=== PATIENT | female | born 1955 | race Caucasian/White ===

== ENCOUNTER 2023-07-26 10:20 | Inpatient (IN) | payer OTHER, SELFPAY ==
[2023-07-20 10:35] VITALS: BMI 32.2
[2023-07-26] VITALS (10 sets, daily range): BP systolic 110–159; BP diastolic 57–98; PULSE 77–104; RESP 9–18; TEMP 36.1–36.6; O2SAT 92–99; BMI 32.2
--- NOTE | 2023-07-26 | DI.RAD.S_ITS ---
PROCEDURE: XR LUMBAR SPINE 2-3V INDICATIONS: L4-5 TLIF TECHNIQUE: 3 views of the lumbar spine were acquired. COMPARISON: None. FINDINGS: Intraoperative L4-5 fixation with intervertebral spacer/prosthetic disc is present. There is good anatomic alignment hardware is intact. IMPRESSION: Intraoperative L4-5 fixation. Dictated by: Gretchen Zarate M.D. on 07/26/2023 at 17:07 Approved by: Gretchen Zarate M.D. on 07/26/2023 at 17:08
[2023-07-26] MEDS: LACTATED RINGERS 1,000 ML 84 ML IV ×2 (11:49→14:56)
--- NOTE | 2023-07-26 12:43 | PM.PREOP ---
Pre-operative Note Interval Note History & Physical reviewed/Exam performed by Physician: Yes Changes to H&P: No
[2023-07-26] MEDS: ACETAMINOPHEN IV 1,000 MG/100 ML VIAL 400 MG IV (14:08)
[2023-07-26] MEDS: CEFAZOLIN 2 GM/100 ML PREMIX 100 ML IV ×2 (14:09→22:03)
[2023-07-26] MEDS: BUPIVACAINE 0.25% (PF) 60 ML, EPINEPHrine 0.15 MG INJ (14:10)
[2023-07-26] MEDS: BUPIVACAINE LIPOSOME 266 MG/20 ML VIAL INJ (14:11)
--- NOTE | 2023-07-26 14:21 | SUR.OPER ---
Prone on spine table, head in foam head support, padded chest and pelvic supports, gel pad at knees, lower legs supported by pillows; nipples, genitalia and toes free of pressure, arms secured on foam padded arm boards at <90 degrees abduction. Tape over blanket at thigh secured to table.
--- NOTE | 2023-07-26 15:59 | PM.OP.1 ---
Operative Date/Time/Diagnoses Date of procedure: 07/26/23 Time of procedure: 13:00 Pre-op diagnosis: 1. L4-5 spondylolisthesis 2. L4-5 spinal stenosis with neurogenic claudication Post-op diagnosis: same Procedure & Clinicians Procedure: 1. L4-5 Postero-lateral and posterior interbody fusion 2. L4-5 interbody cage placement. 3. L4-5 decompressive laminectomy with bilateral facetecomies 4. L4-5 Posterior non-segmental instrumentation 5. [place] of bone marrow from iliac crest 6. Utilization of microsurgical technique and operating microscope Same procedure as scheduled: Yes Indications: Patient has been having chronic back pain and worsening lumbar radiculopathy and symptoms of neurogenic claudication. Patient failed multiple conservative management with worsening pain weakness and numbness in her lower extremity. Patient has been having difficulty performing activity of daily living. After discussing risks benefits of treatment options, patient elected proceed with surgery. Surgeon: Lee Gregorio Plumbing Engineer: Veronika Gomes Click Yes if Unassisted: No Anesthesia Type: General Operative Notes Closure Type: primary Specimen(s): none sent Prosthetic devices, grafts, tissues, transplants, or devices: Globus revolve screws, Rise cage Estimated Blood Loss (mL): 50 Blood products transfused: none Procedure in detail: Patient was seen in the preoperative area. Risks and benefits of the surgery was discussed with the patient. Informed consent was obtained from the patient and placed in the chart. Surgical site was marked. Patient was taken to the operative room. General anesthesia was administered. Prophylactic antibiotic was given to the patient less than 30 min before the incision was made. Patient was placed into a prone position on the Wilfred table. Patient's back was then prepped and draped in the sterile fashion. Time-out was performed at this time. Using AP and lateral C-arm imaging the interval between L4-5 was identified and marked on patient's back. A 2 inch incision 2 in from midline was made on the right side first. The fascia was incised in line with skin incision. Globus MARS retractors was placed inside the incision and docked onto the L4 lamina. Using microsurgical technique and operating microscope, a L4 laminectomy and L4-5 facetectomy was performed using a Kerrison rongeur. The laminectomy and facetectomy was performed in order to decompress patient's cauda equina as well as the nerve roots exiting at the L4-5 level. The disc space at L4-5 was identified. And a total diskectomy was performed at L4-5 level. The endplates were decorticated using a rasp and shaver. The total diskectomy and decortication was performed at L4-5 level in order to to accomplish a L4-5 fusion. The local bone from the laminectomy and facetectomy was saved for local bone grafting. After the total diskectomy and decortication was completed, Trifecta bone graft material was combined with local bone that was harvested earlier. At this time, a separate skin is incision was made over the iliac crest. A Jamshidi needle was inserted into the iliac crest through a separate skin incision. 5 cc of bone marrow aspiration was obtained through the separate skin incision using a Jamshidi needle from the iliac crest. The bone marrow aspiration was combined with local bone and the DBM bone grafting material. The bone grafting material was placed into the L4-5 interbody space along with a expandable cage. The cage was expanded to its maximum height using the torque limiting screwdriver. At this time a mirror image incision was made on the left side. The fascia was incised in line with the skin incision. Globus MARS retractor was inserted and docked onto the L4-5 posterolateral gutter. Using the power drill, posterior-lateral decortication was performed at L4-5 level until bleeding cortical bone was identified. The remaining bone grafting material was placed into the L4-5 posterior lateral gutter he order to accomplish posterolateral fusion at the L4-5 level. Using the double C-arm technique, pedicle screws were placed into the L4-5 pedicles bilaterally. This was done by placing the Jamshidi needle into the pedicles, then placing the guidewires over the Jamshidi needle, and finally placing the cannulated screws over the guidewires bilaterally. After the pedicle screws were placed, 2 titanium rods was locked into the heads of the pedicle screws using locking caps and torque limiting screwdriver. Threaded reducers were used to reduce the patient's spondylolisthesis which was properly reducing maintained in reduced position using the locking caps. After all the hardware was placed, and confirmed with AP and lateral C-arm imaging, the wound was then irrigated with sterile normal saline and packed with Ray-Jose Antonio gauze for 3 min to accomplish hemostasis. After the gauze was removed the deep fascia was closed with #1 Vicryl suture. The subcutaneous layer was closed with 2-0 Vicryl. The skin was closed with skin cheri. Patient tolerated the procedure well. There were no complications. The Operation could not have been safely performed without compromising the technical result or length of the procedure, without the assistance of a skilled certified surgical first assistant. The certified surgical first assistant was medically necessary for proper positioning, retraction and manipulation of instruments, proper exposure, surgical preparation, and manipulation of tissue. Complications: none Post-operative Condition: stable Disposition: PACU Plan for aftercare: Admit to inpatient hospital
[2023-07-26] MEDS: OXYCODONE IR 5 MG TABLET PO ×2 (16:35→17:05)
--- NOTE | 2023-07-26 17:07 | PC.NURSE ---
Postop Note Patient oriented x3, slightly drowsy but awakens easily to voice. On 2L NC with SpO2 95-96%. Reports pain 8/10 to lower back, medicated by PACU nurse with oxycodone, see emar. Dressing to lower back C/D/I. Full CMS to BLEs, denies numbness, strong pulses. Oriented to room and to call light/bed/tv controls. Call light within reach. Bed alarm on. No transfer orders at this time, Dr. Gregorio notified.
[2023-07-26] MEDS: LACTATED RINGERS 1,000 ML 125 ML IV (18:09)
[2023-07-26] MEDS: hydrOXYzine pamoate 25 MG CAPSULE PO ×2 (18:09→22:02)
[2023-07-26] MEDS: DOCUSATE 100 MG CAPSULE PO (20:07)
[2023-07-26] MEDS: ATORVASTATIN 20 MG TABLET 10 MG PO (20:07)
[2023-07-26] MEDS: OXYBUTYNIN 5 MG ER TAB 10 MG PO (20:07)
[2023-07-26] MEDS: SENNOSIDES 8.6 MG TABLET 17.2 MG PO (20:07)
[2023-07-26] MEDS: GABAPENTIN 300 MG CAPSULE PO (20:07)
[2023-07-26] MEDS: OXYCODONE IR 10 MG TABLET PO (20:08)
[2023-07-26] MEDS: ACETAMINOPHEN 325 MG TABLET 650 MG PO (22:02)
[2023-07-27] MEDS: ACETAMINOPHEN 325 MG TABLET 650 MG PO ×2 (04:59→13:00)
[2023-07-27] MEDS: CEFAZOLIN 2 GM/100 ML PREMIX 100 ML IV (05:00)
[2023-07-27] MEDS: LACTATED RINGERS 1,000 ML 125 ML IV (05:00)
[2023-07-27] MEDS: GABAPENTIN 300 MG CAPSULE PO (08:57)
[2023-07-27] MEDS: DOCUSATE 100 MG CAPSULE PO (08:57)
[2023-07-27] MEDS: OXYCODONE IR 10 MG TABLET PO ×2 (08:57→13:01)
[2023-07-27 09:01] VITALS: BP 115/59; PULSE 78; RESP 16; TEMP 36.8; O2SAT 96
--- NOTE | 2023-07-27 09:03 | CM.DANOTE ---
Initial DCP Assessment Note Reviewed EMR. Pt admitted for a planned lumbar fusion w/Dr. Gregorio. Met with pt/spouse at bedside to discuss home d/c needs. Payor: Donald Head Attending: Dr. Gregorio Pt's surgery was completed yesterday, she states that she has all of the DME that she needs to return home safely, spouse to transport. Plan is home today, f/u with Dr. Gregorio in 2-weeks. No further needs identified for dcp at this time. Discharge Planning/Care Management CM Discharge Assessment Start: 07/27/23 08:57 Freq: Status: Active Protocol: Document 07/27/23 08:57 DPL (Rec: 07/27/23 09:03 DPL [id number]) Discharge Planning Assessment Assigned Gas Leak Inspector Helper RADU Paredes Advance Directives? Yes Advance Directives on File No History Provided By Patient,Medical Record Expected Length of Stay 1 Has Patient been admitted in last 30 No days? Prior Living Arrangements House Household Members spouse Type of transporation used prior to Drives own vehicle admit Independent with ADL's Yes Is patient alert and oriented? Yes Caregiver for Another No Comment N/A DME Already Rented / Owned Bath Bench,Elevated Toilet Seat,FWW / Walker Comment graphics software engineer, wedge Patient/Family Preference OP PT Therapy Comment F/u with Dr. Gregorio in 2-weeks for further recommendations for OP therapy. Barriers to Discharge No Discharge Plan Home Community Services Occupational Therapy Referrals Initiated None needed Whiteboard Updated in Patient Room with Yes name and ext. # of Gas Leak Inspector Helper Review Status In Process Please Provide Date Initial DC 07/27/23 Assessment Was Performed Pre-Anesthesia Assessment Start: 07/20/23 10:35 Freq: Status: Complete Protocol: Document 07/20/23 10:35 CAB (Rec: 07/20/23 11:32 CAB [id number]) Pre-Anesthesia Assessment Patient Information Reviewed Via Phone Assessment Assessment Completed With Patient Comment Outside labs/EKG scanned Primary Care Provider Sayra Moss Seen Specialist in Last 12 Months Yes Specialist Seen Orthopedist Primary Language Malaysian Fluid Dynamicist Required No Height 144.78 cm Weight 67.585 kg Body Mass Index (BMI) 32.2 Hearing Ability Normal Visual Assist Glasses Dentition Type Teeth, Natural Present,Teeth, Missing Barriers to Learning None Hx Anesthesia Reactions No Hx Family Anesthesia Reaction No Hx Malignant Hyperthermia No Hx Blood Transfusions No Anesthesia Review Requested No Lumber Carrier Operator No alcohol intake current alcohol intake frequency 0-2 drinks per day Smoking Status Never smoker Substance Use Type does not use Pain Present Pain Reported Musculoskeletal Symptoms Abnormal Gait,Back Pain, Difficulty Walking,Radiating Pain into Limb History of Falling (Recent or History of No ) Patient is completely paralyzed or No completely immobile Prosthesis or Orthotic Device Cane,Front Wheel Walker Mental Status Oriented to own ability Is patient on oxygen? No Does patient have CESAR/SOB No Hx Sleep Apnea No Currently Taking a Beta Ernesto No Can You Climb a Flight of Stairs Without No SOB Hx Chest Pain No Hx SOB No Hx Syncope or Dizziness No Anti-Coagulant Therapy No Has a Rail Switchman No Cardiac Testing No Hx Pacemaker/ICD No Pacemaker Rep Required? No Cardiac Clearance Received Not Applicable Diet Type At Home Regular Dysphagia No Gastrointestinal Symptoms None Chronic UTI No Bladder Pattern Frequency,Incontinent, Stress, Urgency Urinary Catheter Present No Hx Urinary Self Catheterization No Diabetes No: Pre-diabetes HgbA1C 5.3 Date 07/07/23 Patient No Lactating No Hx Drug Resistant Organism No Presence of External or Internal Medical No Devices Have you had any close contact with No someone diagnosed with COVID-19? Received a COVID vaccine? Yes Received all doses? Yes Marital Status Lives With spouse Current Living Arrangements House Number of Floors (Floors) One Floor Number of Stairs To Enter/Railing? 4 Support System Spouse Does the Patient Have Assistance After Yes Surgery Patient Discharge Plan Description Return Home Comment Pt not advised on length of stay per surgeon Feels Safe in Current Environment Yes Been Physically Hurt or Threatened By a No Person in Current Environment Do you have thoughts of harming yourself None or others? Are you currently considering suicide? No Do you have a plan to hurt yourself or No Plan others? Do You Have Any Spiritual Beliefs That No May Affect Your HC Choices? Do You Have Any Cultural Practices That No May Affect Your HC Choices? Comment Rastafarian Who Can We Speak to About Patient's Care Family, friends Identifying Code for Release of Patient Declines to issue Information Health Care Proxy/Next of Kin Juan F () Health Care Proxy Emergency Contact Name Juan F () Emergency Contact Advance Directives? Yes Advance Directives on File No Requested Patient Bring Advanced Yes Directives DOS Power of Senior Business Manager No Power of Senior Business Manager Name Juan F () Power of Senior Business Manager PAC Instructions Durable medical equipment, Medications to take/avoid, Nasal antibiotic,No ETOH/ petroleum product on skin DOS, NPO,Pre-surgical wash,Sensory aids,Sturdy shoes/comfortable clothes,Do not bring valuables and remove jewelry Comment Pt not given instructions for body wash or nare abx
--- NOTE | 2023-07-27 10:22 | PT.IIE ---
Current Diagnoses Spondylolisthesis, lumbar region (07/26/23) Spinal stenosis, lumbar region with neurogenic claudication (07/26/23) Surgery Performed Operation Date: 07/26/23 12:15 Actual Procedures p L4-5 TLIF - Lee Gregorio MD Surgical History (Last Updated 07/20/23 @ 11:12 by Kristen Mosquera, RN) History of History of partial hysterectomy Hx of cholecystectomy Medical History (Last Updated 07/20/23 @ 11:31 by Kristen Mosquera, RN) History of COVID-19 (03/2021) HLD (hyperlipidemia) HTN (hypertension) Osteoporosis Pre-diabetes Sciatica Spinal stenosis Spondylolisthesis Physical Therapy Inpatient Evaluation/Re-Eval M1 PT/OT-IP Prior Functional Status Start: 07/27/23 08:26 Freq: NEEDED Status: Active Protocol: Document 07/27/23 09:08 MB (Rec: 07/27/23 10:22 MB [id number]) Medical Review Prior Functional Status Medical History Reviewed Yes Diet/Fluid Consistency Regular Communication WNLs Mobility and Gait Mod I with SPC, RW or 4WRW Activities of Daily Living and IADL's I to mod I Prior Functional Level (Other details) Pt has a very high bed with a step to get in and pt and her are a little concerned about this. They talk through all bed options in the house and this may be the best one as far as mattress/comfort and talked through placement of walker in front of step, considering bed changes in the future Social History Household Members spouse Living Arrangements House Number of Floors (Floors) One Floor Number of Stairs To Enter/Railing? 4 steps with right rail ascend to enter home Home Environment Standard Height Toilet,Tub/ Shower Home Equipment Front Wheel Walker,Four Wheel Walker,Straight Cane,Bedside Commode,Tub Transfer Bench Employment Status Retired M2 PT-IP Current Condition Start: 07/27/23 08:26 Freq: NEEDED Status: Active Protocol: Document 07/27/23 09:08 MB (Rec: 07/27/23 10:22 MB [id number]) Physical Therapy Current Condition Current Condition Evaluation Date 07/27/23 Treatment Diagnosis L4-5 spondylolisthesis and stenosis s/p L4-5 fusion Onset Date 07/26/2023 M3 PT-IP Subjective Start: 07/27/23 08:26 Freq: NEEDED Status: Active Protocol: Document 07/27/23 09:08 MB (Rec: 07/27/23 10:22 MB [id number]) Subjective Physical Therapy Visit Type Type Initial Evaluation Visit Start Time 09:08 Visit Stop Time 09:38 Total Visit Minutes 30 Number of PULLMAN CAR REPAIRER Visits 0 Physical Therapy Visit Comments Patient Comments Pt states she is doing well and is ready to move/walk. Therapy Pain Assessment Pain When Pain Assessed During Mobility Pain Present Pain Present Pain Reported Location low back Intensity 3 Scale Used Numeric (0 - 10) Description Acute Pain Management Techniques Timing of Activity with Medications M4 PT-IP Mobility and Gait Start: 07/27/23 08:26 Freq: NEEDED Status: Active Protocol: Document 07/27/23 09:08 MB (Rec: 07/27/23 10:22 MB [id number]) PT-Bed Mobility Assessment Rolling Type of Rolling Log Rolling,Roll to Left Level of Assist Independent Supine to Sit Supine to Sit Independent,Bedrails Scooting Scooting to Edge of Bed Standby Assistance PT-Transfer Assessment Sit to and From Stand Sit to and from Stand Standby Assistance,1 Person Assistance Equipment Transfer Assistive Device Gait Belt,Front Wheeled Walker Orthotic/Prosthetic Devices or Brace: No Comments Mobility Comments Pt is very petite and the bed at it's lowest height is still very tall for pt and her feet are about 4-5 from the floor to move from sit to stand Gait Assessment Gait Gait Assistance Required: Standby Assistance,1 Person Assist Distance (Feet) 100 Able to Maintain Weight Bearing Status Yes During Gait Assistive Devices Assistive Device Gait Belt,Front Wheeled Walker Gait Deviations General Gait Pattern Antalgic Comments Gait Comments Pt gait trains well, 100'x2 with RW and no more than SBA and close to mod I. Slightly slower david post-op and d/t mild lumbar pain reports. nearby for treatment. Stair Climbing Assessment Evaluation Level of Assist On Stairs Standby Assistance,1 Person Assistance Devices Stair Climbing Assistive Devices Right Railing Technique/Endurance Stair Climbing Direction Ascend and Descend Stair Climbing Technique Step to Step Number of Steps Climbed 3 Query Text: Stair Climbing Set # Repetitions (reps) 1 Comments Stair Climbing Comments Ed pt to face rail to avoid twisting back and then she ascends and descends three steps with step-to pattern, using same rail to descend. PT-Balance Assessment Sitting Balance and Reactions Static Sitting Balance Ability Good Dynamic Sitting Balance Ability Good Standing Balance and Reactions Static Standing Balance Ability Good Dynamic Standing Balance Ability Good Device Used RW M5 PT-IP Objective Assessments Start: 07/27/23 08:26 Freq: NEEDED Status: Active Protocol: Document 07/27/23 09:08 MB (Rec: 07/27/23 10:22 MB [id number]) Orientation Orientation/Cognition Level of Alertness Alert Orientation Name,Age,Birthday,Month,Date, Year,Day of Week,Place, Situation Language Function Ability No Deficits Noted Safety Awareness Understands Safety Issues Memory Description No Deficits Noted Gross Range of Motion Upper Extremity ROM Impairments Defer to OT Lower Extremity ROM Assessment Within Functional Limits Strength Lower Extremity Strength Assessment Within Functional Limits Coordination Assessment Gross Coordination Gross Coordination WNL Sensation Assessment Sensation Gross Sensation WNL Muscle Tone Muscle Tone WNL Yes M6 PT-IP Treatment Start: 07/27/23 08:26 Freq: NEEDED Status: Active Protocol: Document 07/27/23 09:08 MB (Rec: 07/27/23 10:22 MB [id number]) Physical Therapy Treatment Education Education Provided Precautions,Post-Op Packet, Safety Other Treatments Other Treatment Performed Pt verbalizes 3/3 back precautions with I before PT instructions. She had pre-op PT. She reports living in [place] and having to commute to [place] to PT and this is also the plan after d /c and PT encourages pt to speak with surgeon about this given greater than 45' commute both directions in a pt with back pain s/p lumbar surgery M7 PT-IP Assessment and Plan Start: 07/27/23 08:26 Freq: NEEDED Status: Active Protocol: Document 07/27/23 09:08 MB (Rec: 07/27/23 10:22 MB [id number]) PT Summary Assessment and Plan Potential Rehabilitation Potential Excellent Status of Condition at Evaluation Stable Summary Impairments Pain Progress Towards Goals Safe For Discharge Assessment Summary Pt is a pleasant 67 y/o female who is moving well post-op. Her is nearby for PT eval. Log rolling, gait and stair training go very well and there is a height challenge for STS from the EOB and pt and also have this challenge at home and she has a step with a rail on it. Discussed ways to manage this at home. She will con't with OPPT at d/c. Will d/c PT. Frequency of Treatment Frequency Of Treatment Discharge Precautions Lumbar Precautions Log Roll,No Twisting,Limit Bending,Lifting Restriction of 10 lbs,Gait Belt above Incisional Area Weight Bearing Status Weight Bearing Status Weight Bear as Tolerated Recommendations To Nursing Amount of Assist Needed Standby Assistance,1 Person Assist Discharge Recommendations PT Discharge Recommendations Home with 01/05 Assist Available,Outpatient PT Transportation Needs at Discharge Private Vehicle
--- NOTE | 2023-07-27 10:47 | OT.IP.EVAL ---
Current Diagnoses Spondylolisthesis, lumbar region (07/26/23) Spinal stenosis, lumbar region with neurogenic claudication (07/26/23) Surgery Performed Operation Date: 07/26/23 12:15 Actual Procedures p L4-5 TLIF - Lee Gregorio MD Past Medical History (Last Updated 07/20/23 @ 11:31 by Kristen Mosquera, RN) History of COVID-19 (03/2021) HLD (hyperlipidemia) HTN (hypertension) Osteoporosis Pre-diabetes Sciatica Spinal stenosis Spondylolisthesis Surgical History (Last Updated 07/20/23 @ 11:12 by Kristen Mosquera, RICARDO) History of History of partial hysterectomy Hx of cholecystectomy Occupational Therapy Inpatient Evaluation/Re-Eval M1 PT/OT-IP Prior Functional Status Start: 07/27/23 08:26 Freq: NEEDED Status: Active Protocol: Document 07/27/23 11:58 CGR (Rec: 07/27/23 12:08 CGR [id number]) Medical Review Prior Functional Status Medical History Reviewed Yes Diet/Fluid Consistency Regular Communication WNLs Mobility and Gait Mod I with SPC, RW or 4WRW Activities of Daily Living and IADL's I to mod I Prior Functional Level (Other details) Pt has a very high bed with a step to get in and pt and her are a little concerned about this. They talk through all bed options in the house and this may be the best one as far as mattress/comfort and talked through placement of walker in front of step, considering bed changes in the future Social History Household Members spouse Living Arrangements House Number of Floors (Floors) One Floor Number of Stairs To Enter/Railing? 4 steps with right rail ascend to enter home Home Environment Standard Height Toilet,Tub/ Shower Home Equipment Front Wheel Walker,Four Wheel Walker,Straight Cane,Bedside Commode,Tub Transfer Bench, Hand Held Shower,Grab Bars Near Toilet,Grab Bars In Shower Employment Status Retired Additional Social History Comment Pt states that her son will be installing the grab bars this weekend. M2 OT-IP Current Condition Start: 07/27/23 11:57 Freq: Status: Active Protocol: Document 07/27/23 11:58 CGR (Rec: 07/27/23 12:08 CGR [id number]) Occupational Therapy Current Condition Current Condition Evaluation Date 07/27/23 Treatment Diagnosis L4-L5 TLIF Diagnosis Onset Date 07/26/23 Post Operative Precautions Lumbar Precautions Log Roll,No Twisting,Limit Bending,Lifting Restriction of 10 lbs,Gait Belt above Incisional Area M3 OT- IP Subjective and Pain Start: 07/27/23 11:57 Freq: Status: Active Protocol: Document 07/27/23 11:58 CGR (Rec: 07/27/23 12:08 CGR [id number]) OT- Subjective Occupational Therapy Visit Type Type Initial Evaluation Visit Start Time 10:01 Visit Stop Time 10:47 Total Visit Minutes 46 OT Pain Assessment Pain When Pain Assessed At Rest Pain Present Pain Present Pain Reported Location low back Intensity 4 Scale Used Numeric (0 - 10) Management Techniques Modification of Treatment,Re- positioning,Timing of Activity with Medications M4 OT- IP ADL's Start: 07/27/23 11:57 Freq: Status: Active Protocol: Document 07/27/23 11:58 CGR (Rec: 07/27/23 12:08 CGR [id number]) OT [id number] Comments OT Self-Feeding Comments not meal time OT ADL-Grooming Comments OT Grooming Comments not performed, pt states she just performed prior to OT entering OT ADL-Oral Care Comments Oral Care Comments not performed, pt states she just performed prior to OT entering OT ADL-Dressing General Eval Lower Body Dressing Ability Standby Assistance Areas Needing Assistance Underpants/Brief,Socks Assistive Devices Dressing Assistive Devices Machine Sewer,Sock Aid Comments OT Dressing Comments Pt educated on use of pleater hand and sock aide and performed well. OT ADL-Toileting General Evaluation Toileting Ability Standby Assistance Comments OT Toileting Comments simulated pericare seated on toilet OT ADL-Bathing Comments OT Bathing Comments not performed M5 OT- IP IADL's Start: 07/27/23 11:57 Freq: Status: Active Protocol: Document 07/27/23 11:58 CGR (Rec: 07/27/23 12:08 CGR [id number]) OT-Instrumental Activities of Daily Living Deficits IADL Deficits Identified No Deficits Home Safety Awareness Awareness of Need for Assistance at Home Good Awareness Ability to Problem Solve Emergency Able to Problem Solve Situations Medication Management Medication Management No Deficits Identified Money Management Money Management No Deficits Identified Meal Preparation Meal Preparation Caregiver Provides Assist Director Of Informatics Director Of Informatics Caregiver Provides Assist Driving Driving Comments Pt understands that she should not drive till cleared by . M6 OT- IP Functional Cognition Start: 07/27/23 11:57 Freq: Status: Active Protocol: Document 07/27/23 11:58 CGR (Rec: 07/27/23 12:08 CGR [id number]) Cognitive Factors Limiting Selfcare Function Cognitive Ability Level of Alertness Alert Patient Orientation Name,Age,Birthday,Month,Date, Year,Day of Week,Place, Situation Attention Span Ability Capable of Focused Attention, Capable of Sustained Attention Ability to Follow Commands Able to Follow One Step Commands with Increased Time, Able to Follow One Step Commands with Repetition OT- Vision and Hearing OT- Hearing Assessment OT- Hearing Assessment WFL OT- Vision Assessment Visual Acuity Glasses All The Time Visual Attentiveness WFL Occular Pursuits WFL Visual Convergence WFL Vision Assessment Comments Pt wears bifocals M7 OT- IP Mobility and Balance Start: 07/27/23 11:57 Freq: Status: Active Protocol: Document 07/27/23 11:58 CGR (Rec: 07/27/23 12:08 CGR [id number]) OT- Bed Mobility Assessment Rolling Type of Rolling Log Rolling,Roll to Right Level of Assistance Standby Assistance Supine to Sit Supine to Sit Assist Standby Assistance Scooting Scooting to Edge of Bed Standby Assistance OT-Transfer Assessment Sit to and From Stand Sit to and from Stand Standby Assistance Transfers Transfer Ability Standby Assistance Technique Transfer Destination Bed,Chair,Toilet Transfer Technique Stand Step Pivot Devices Transfer Assistive Devices Gait Belt,Front Wheeled Walker OT- Balance Assessment Sitting Balance and Reactions Static Sitting Balance Ability Good Dynamic Sitting Balance Ability Good M8 OT- IP Objective Assessments Start: 07/27/23 11:57 Freq: Status: Active Protocol: Document 07/27/23 11:58 CGR (Rec: 07/27/23 12:08 CGR [id number]) OT Gross Range of Motion Upper Extremity Range of Motion Assessment Within Functional Limits OT Strength Upper Extremity Strength Assessment Within Functional Limits Comments Strength Comments 4+ to 5/5 OT- Coordination Assessment Upper Extremity Finger to Nose Test Within Functional Limits Finger Tapping Test Within Functional Limits OT-Muscle Tone Assessment Muscle Tone WNL Yes M9 OT- IP Assessment and Plan Start: 07/27/23 11:57 Freq: Status: Active Protocol: Document 07/27/23 11:58 CGR (Rec: 07/27/23 12:08 CGR [id number]) OT Summary Assessment and Plan Potential Rehabilitation Potential Excellent Analytic Complexity at Evaluation Low Summary OT Impairments Pain,Functional Mobility Progress Towards Goals Progressing Toward Goals,Safe For Discharge Assessment Summary Pt presents as a low complexity evaluation s/p admit for L4-5 TLIF. Pt is performing at SBA and was educated on home safety and LB dressing with back precautions. Pt demonstrates understanding. Pt is appropriate for discharge home with support from OT perspective. No further OT needs. Frequency of Treatment Frequency Of Treatment Discharge Discharge Recommendations OT Discharge Recommendations Home with Assistance Transportation Needs at Discharge Private Vehicle
[2023-07-27] MEDS: hydrOXYzine pamoate 25 MG CAPSULE PO (11:34)
--- NOTE | 2023-07-27 14:04 | PC.NURSE ---
Pt discharged home at 1330, escorted off floor in wheelchair. IV removed, discharge teaching provided including follow up appointments, new medications, and wound care. Questions answered and concerns addressed. Patient left floor with all belongings.
== END 2023-07-27 14:07 | disposition home or self-care (01) | DRG 455 ==
PROVIDERS: Admitting Provider Orthopaedic Surgery Orthopaedic Surgery of the Spine; PCP Internal Medicine; Referring Provider Orthopaedic Surgery Orthopaedic Surgery of the Spine; Visit Provider Orthopaedic Surgery Orthopaedic Surgery of the Spine
PROC: 0SG00AJ Fusion of Lumbar Vertebral Joint with Interbody Fusion Device, Posterior Approach, Anterior Column, Open Approach (ICD-10-PCS; principal; 2023-07-26 12:15)
DX: M43.16 Spondylolisthesis, lumbar region (principal); M48.062 Spinal stenosis, lumbar region with neurogenic claudication
CPT/HCPCS: 72100; 76000; 97162; 97165; 97535; C1713; C1831; C9290; J0131; J0171; J0330; J0690; J1100; J1170; J2405; J2704; J3010